=== PATIENT | female | born 1995 | race Caucasian/White ===

== ENCOUNTER 2016-11-08 14:54 | Inpatient (IN) | payer OTHER ==
[~2016-11-08] VITALS: Ht 152.4 cm; Wt 75.5 kg
[~2016-11-08 14:54] MED LIST: ALTACE1.25 MG PO; COLACE100 MG PO; HUMULIN N100 UNITS/ SC; IBUPROFEN800 MG PO; INSULIN PUMP SCCONT; LANTUS (UNITS)1 UNIT SC; LANTUS 3 M100 UNITS1 SC; LEVEMIR100 UNIT/2 SC; NOVOLIN N100 UNITS/ SC; NOVOLOG (UNITS1 UNIT IV; NOVOLOG 10100 UNITS/ SC; NOVOLOG PE100 UNITS/ SC; OXECTA5 MG PO; PRENATAL TABLE1 EAC3 PO; SYNTHROID100 MCG PO; SYNTHROID125 MCG PO; SYNTHROID25 MCG PO; SYNTHROID75 MCG PO; ZOFRAN4 MG PO
[2016-11-08 15:16] VITALS: BP 125/87
[2016-11-08] MEDS ORDERED: NOVOLOG 10100 UNITS/ SC (15:30)
[2016-11-08] MEDS ORDERED: LEVEMIR100 UNIT/2 SC ×2 (15:33→15:34)
[2016-11-08 16:42] LABS: EOSINOPHIL (%) 0.7 % (0-5); EOSINOPHIL COUNT 0.1 K/uL (0-0.3); HEMATOCRIT 35.2 % (36.0-46.0); IMMATURE GRANULOCYTE (%) 0.5 % (0.0-0.7); IMMATURE GRANULOCYTE COUNT 0.1 K/uL; INSTRUMENT ABS NEUTROPHIL CT 10.1 K/uL; LYMPHOCYTE COUNT 1.7 K/uL (1.0-2.8); MCH 25.6 PG (29.0-34.0); MCHC 31.3 G/DL (30.0-36.0); MCV 82.1 FL (83-99); MEAN PLAT.VOLUME 11.9 uM^3 (9.5-12.4); MONOCYTE (%) 5.3 % (3-12); MONOCYTE COUNT 0.7 K/uL (0-0.8); NEUTROPHIL (%) 80.2 % (45-76); NEUTROPHIL COUNT 10.1 K/uL (1.8-6.4); PLATELET COUNT 212 K/uL (156-360); RBC DIS.WIDTH-CV 13.6 % (11.8-14.6); RBC DIS.WIDTH-SD 40.5 % (39-53); RED BLOOD COUNT 4.29 M/uL (3.80-5.20); WHITE BLOOD COUNT 12.6 K/uL (4.1-10.2)
[2016-11-08 16:47] LABS: POINT-OF-CARE METER ID UU14188576
[2016-11-08 17:06] LABS: ALKALINE PHOSPHATASE 124 IU/L (3-129); ANION GAP 7 MEQ/L (2-14); CHLORIDE 101 MEQ/L (99-109); GFR ESTIMATE (CALCULATED) > 59 mL/min/; GLUCOSE 138 mg/dL (70-99); POTASSIUM 4.1 MEQ/L (3.7-5.4); SAMPLE HEMOLYSIS CHECK 0; SAMPLE ICTERIC CHECK 0; SAMPLE LIPEMIA CHECK 0; SODIUM 134 MEQ/L (136-147); TOTAL BILIRUBIN 0.7 MG/DL (0.0-1.0); UREA NITROGEN (BUN) 10 mg/dL (9-23)
[2016-11-08 19:11] LABS: POINT-OF-CARE METER ID UU13113675
[2016-11-08 20:47] VITALS: BP 116/74
[2016-11-08 21:17] LABS: POINT-OF-CARE METER ID UU14188576
[2016-11-08 21:55] VITALS: BP 124/75
[2016-11-08 22:40] LABS: POINT-OF-CARE METER ID UU14188576
[2016-11-08 23:31] LABS: AMPHETAMINES QUANT VALUE 0 NG/ML; BARBITUATES QUANT VALUE 0 NG/ML; BENZODIAZEPINES, URINE SCREEN POSITIVE (200 ng/mL); OPIATES QUANTITATIVE VALUE 0 NG/ML; PHENCYCLIDINE QUANT VALUE 0 NG/ML
[2016-11-08 23:56] VITALS: BP 118/65
[2016-11-09] VITALS (7 sets, daily range): BP systolic 100–118; BP diastolic 51–78
[2016-11-09 04:09] LABS: POINT-OF-CARE METER ID UU13113692
[2016-11-09 06:15] LABS: POINT-OF-CARE METER ID UU13113692
[2016-11-09 07:32] LABS: EOSINOPHIL (%) 1.1 % (0-5); EOSINOPHIL COUNT 0.2 K/uL (0-0.3); HEMATOCRIT 27.9 % (36.0-46.0); IMMATURE GRANULOCYTE (%) 0.5 % (0.0-0.7); IMMATURE GRANULOCYTE COUNT 0.1 K/uL; INSTRUMENT ABS NEUTROPHIL CT 10.6 K/uL; LYMPHOCYTE COUNT 2.1 K/uL (1.0-2.8); MCH 25.4 PG (29.0-34.0); MCHC 30.8 G/DL (30.0-36.0); MCV 82.3 FL (83-99); MEAN PLAT.VOLUME 12.2 uM^3 (9.5-12.4); MONOCYTE (%) 7.6 % (3-12); MONOCYTE COUNT 1.1 K/uL (0-0.8); NEUTROPHIL (%) 75.6 % (45-76); NEUTROPHIL COUNT 10.6 K/uL (1.8-6.4); PLATELET COUNT 181 K/uL (156-360); RBC DIS.WIDTH-CV 13.6 % (11.8-14.6); RBC DIS.WIDTH-SD 40.7 % (39-53)
[2016-11-09 07:33] LABS: RED BLOOD COUNT 3.39 M/uL (3.80-5.20)
[2016-11-09 07:42] LABS: ANION GAP 8 MEQ/L (2-14); CHLORIDE 103 MEQ/L (99-109); GFR ESTIMATE (CALCULATED) > 59 mL/min/; POTASSIUM 4.1 MEQ/L (3.7-5.4); SAMPLE HEMOLYSIS CHECK 0; SAMPLE ICTERIC CHECK 0; SAMPLE LIPEMIA CHECK 0; SODIUM 138 MEQ/L (136-147); UREA NITROGEN (BUN) 8 mg/dL (9-23)
[2016-11-09 07:43] LABS: GLUCOSE 67 mg/dL (70-99); TOTAL BILIRUBIN 0.4 MG/DL (0.0-1.0)
[2016-11-09 07:44] LABS: ALKALINE PHOSPHATASE 86 IU/L (3-129)
[2016-11-09 22:33] LABS: POINT-OF-CARE METER ID UU13113692
[2016-11-09 22:33] LABS: POINT-OF-CARE METER ID UU13113692
[2016-11-09 22:33] LABS: POINT-OF-CARE METER ID UU13113692
[2016-11-10 06:19] LABS: POINT-OF-CARE METER ID UU14188576
[2016-11-10 07:18] VITALS: BP 110/82
[2016-11-10] MEDS ORDERED: LEVEMIR100 UNIT/2 SC (08:53)
[2016-11-10] MEDS ORDERED: NOVOLOG PE100 UNITS/ SC (08:54)
[2016-11-10] MEDS ORDERED: FERROUS SULFAT325 MG PO (08:54)
[2016-11-10] MEDS ORDERED: IBUPROFEN800 MG PO (08:54)
[2016-11-10] MEDS ORDERED: ENDOCET 5-3251 EACH PO (08:54)
[2016-11-10 10:47] VITALS: BP 109/72
== END 2016-11-10 13:55 | disposition home or self-care (01) | DRG 765 ==
LOC: LDRP-OP 14:54 → 2WEST 14:57
PROVIDERS: Obstetrics & Gynecology
PROC: 10D00Z1 Extraction of Products of Conception, Low, Open Approach (ICD-10-PCS; principal; 2016-11-08)
DX: O36.4XX0 Maternal care for intrauterine death, not applicable or unspecified (principal); O24.02 Pre-existing type 1 diabetes mellitus, in childbirth; E10.65 Type 1 diabetes mellitus with hyperglycemia; O99.284 Endocrine, nutritional and metabolic diseases complicating childbirth; E03.9 Hypothyroidism, unspecified; O99.02 Anemia complicating childbirth; D50.9 Iron deficiency anemia, unspecified; O99.334 Smoking (tobacco) complicating childbirth; F17.210 Nicotine dependence, cigarettes, uncomplicated; O12.14 Gestational proteinuria, complicating childbirth; Z3A.35 35 weeks gestation of pregnancy; Z37.1 Single stillbirth; D62 Acute posthemorrhagic anemia; O34.211 Maternal care for low transverse scar from previous cesarean delivery; N85.8 Other specified noninflammatory disorders of uterus
CPT/HCPCS: 80053; 80306 90; 82948; 85025; 86900; 86901; 87070; 87075; 87205; 88307; J0690; J1200; J1815; J2250; J2274; J2405; J3010; J7120

== ENCOUNTER 2017-04-06 13:54 | Emergency (ER) | payer OTHER ==
[~2017-04-06] VITALS: Ht 152.4 cm; Wt 63.2 kg
[~2017-04-06 13:54] MED LIST changes: +ENDOCET 5-3251 EACH PO; +FERROUS SULFAT325 MG PO
[2017-04-06 14:13] LABS: POINT-OF-CARE METER ID UU13113747
[2017-04-06 14:15] LABS: EOSINOPHIL (%) 0.8 % (0-5); EOSINOPHIL COUNT 0.1 K/uL (0-0.3); HEMATOCRIT 37.3 % (36.0-46.0); IMMATURE GRANULOCYTE (%) 0.5 % (0.0-0.7); IMMATURE GRANULOCYTE COUNT 0.1 K/uL; INSTRUMENT ABS NEUTROPHIL CT 7.1 K/uL; LYMPHOCYTE COUNT 1.5 K/uL (1.0-2.8); MCH 28.6 PG (29.0-34.0); MCHC 32.7 G/DL (30.0-36.0); MCV 87.4 FL (83-99); MEAN PLAT.VOLUME 10.6 uM^3 (9.5-12.4); MONOCYTE (%) 4.2 % (3-12); MONOCYTE COUNT 0.4 K/uL (0-0.8); NEUTROPHIL (%) 77.9 % (45-76); NEUTROPHIL COUNT 7.1 K/uL (1.8-6.4); PLATELET COUNT 241 K/uL (156-360); RBC DIS.WIDTH-CV 12.2 % (11.8-14.6); RBC DIS.WIDTH-SD 39.4 % (39-53); RED BLOOD COUNT 4.27 M/uL (3.80-5.20); WHITE BLOOD COUNT 9.1 K/uL (4.1-10.2)
[2017-04-06 14:23] LABS: CHLORIDE 104 mEq/L (99-109); POTASSIUM 4.3 mEq/L (3.7-5.4); SODIUM 135 mEq/L (136-147)
[2017-04-06 14:24] LABS: MAGNESIUM 1.5 mg/dL (1.3-2.7)
[2017-04-06 14:25] LABS: GLUCOSE 338 mg/dL (70-99)
[2017-04-06 14:27] LABS: ANION GAP 14 MEQ/L (2-14)
[2017-04-06 14:29] LABS: GFR ESTIMATE (CALCULATED) > 59 mL/min/
[2017-04-06 14:30] LABS: UREA NITROGEN (BUN) 9 mg/dL (9-23)
[2017-04-06 14:41] LABS: ADD MIUA? NO; BILIRUBIN NEGATIVE; BLOOD NEGATIVE; COLOR YELLOW ((YELLOW)); GLUCOSE (STRIP) >=500; KETONES 80; LEUKOCYTES NEGATIVE; NITRITE NEGATIVE; PROTEIN (STRIP) 30; SPECIFIC GRAVITY 1.031 (1.000-1.030); UROBILINOGEN 0.2 MG/DL (0.2-1.0)
[2017-04-06 14:45] LABS: INTERNAL CONTROL VALID? YES
[2017-04-06 14:45] LABS: UCUL ADDED? NO
[2017-04-06 15:35] LABS: POINT-OF-CARE METER ID UU13113747
[2017-04-06 16:08] VITALS: BP 111/64
== END 2017-04-06 16:09 | disposition home or self-care (01) ==
LOC: EME → EDBD 13:54 → EME 13:54
PROVIDERS: Emergency Medicine
DX: E10.65 Type 1 diabetes mellitus with hyperglycemia (principal); R11.2 Nausea with vomiting, unspecified; E10.22 Type 1 diabetes mellitus with diabetic chronic kidney disease; N18.9 Chronic kidney disease, unspecified; E03.9 Hypothyroidism, unspecified; Z79.4 Long term (current) use of insulin; F17.200 Nicotine dependence, unspecified, uncomplicated
CPT/HCPCS: 80048; 81003; 82010; 82948; 83735; 84703; 85025; 99281; 99284; J7030